=== PATIENT | female | born 1985 | race Caucasian/White ===

== ENCOUNTER 2021-10-24 14:58 | Emergency (ER) | payer OTHER ==
[~2021-10-24] VITALS: Ht 167.6 cm; Wt 69.9 kg
--- NOTE | 2021-10-24 15:17 | NUR ---
CAME IN AND STATED "WITHDRAWING FROM XANAX AND COCAINE" FEELING DIZZY AND NAUSEAOUS. TO ER BED 11, HOOKED TO MONITOR, CHANGED TO HOSP GOWN, WARM BLANKET PROVIDED, PATIENT AAO x 4. BREATHING EVEN AND UNLABORED. AWAITING MD ROOT
--- NOTE | 2021-10-24 15:38 | NUR ---
ASHLEY BELL AT BEDSIDE
--- NOTE | 2021-10-24 15:40 | NUR ---
URINE SAMPLE COLLECTED AND SENT TO LAB
[2021-10-24] MEDS ORDERED: ONDANSETRON HCL/PF 4 MG/2 ML VIAL ONE (15:59)
[2021-10-24] MEDS ORDERED: IV NS 0.9% 1,000 ML BAG IV ONE (16:00)
[2021-10-24] MEDS ORDERED: ONDANSETRON HCL/PF 4 MG/2 ML VIAL IVP ONE (16:00)
[2021-10-24] MEDS ORDERED: KETOROLAC TROMETHAMINE INJ 30 MG/ML VIAL IV ONE (16:00)
[2021-10-24] MEDS ORDERED: DIAZEPAM 5 MG TABLET PO ONE (16:00)
[2021-10-24] MEDS ORDERED: BACLOFEN (10 MG) 10 MG TABLET PO ONE (16:00)
--- NOTE | 2021-10-24 16:10 | NUR ---
COMMISSION ASSOCIATE AT BEDSIDE
[2021-10-24 16:15] LABS: BILIRUBIN,URINE MODERATE (NEGATIVE); COLOR,URINE YELLOW (YELLOW); LEUKOCYTE ESTERASE ,URINE NEGATIVE (NEGATIVE); NITRITE, URINE NEGATIVE (NEGATIVE); PH,URINE 6.5 (5.0-8.0); PROTEIN,URINE 100 mg/dl (NEGATIVE); UGLUCOSE NEGATIVE (NEGATIVE)
[2021-10-24 16:27] LABS: BASOPHILS % (AUTO) 0.6 % (0.0-2.0); EOSINOPHILS % (AUTO) 0.3 % (0.0-6.0); HEMATOCRIT 43 % (33-45); HEMOGLOBIN 14.3 g/dL (11.5-14.8); LYMPHOCYTES # (AUTO) 1.1 K/uL (0.8-4.8); LYMPHOCYTES % (AUTO) 23.9 % (20.0-44.0); MEAN CORPUSCULAR HGB CONC 33 g/dl (31.0-36.0); MEAN CORPUSCULAR VOLUME 92 fL (82-100); MONOCYTES # (AUTO) 0.2 K/uL (0.1-1.30); MONOCYTES % (AUTO) 5.3 % (2.0-12.0); NEUTROPHILS # (AUTO) 3.2 K/uL (1.8-8.9); NEUTROPHILS % (AUTO) 69.9 % (43.0-81.0); PLATELET COUNT (AUTO) 245 K/uL (150-450); RED BLOOD CELL COUNT(AUTO) 4.66 MIL/uL (4.0-5.2); WHITE BLOOD COUNT (AUTO) 4.5 K/uL (4.3-11.0)
[2021-10-24] MEDS ORDERED: KETOROLAC TROMETHAMINE 15 MG/ML VIAL ONE (16:27)
[2021-10-24] MEDS ORDERED: DIAZEPAM 5 MG TABLET ONE (16:27)
[2021-10-24] MEDS ORDERED: BACLOFEN (10 MG) 10 MG TABLET ONE (16:28)
[2021-10-24 16:43] LABS: BACTERIA,URINE 1+ /HPF (None Seen); RBC,URINE 51-80 /HPF (0-2); WBC,URINE 0-2 /HPF (0-3)
[2021-10-24 16:44] LABS: SQUAMOUS EPITHELIAL CELL,UR Few /HPF (None Seen)
[2021-10-24] MEDS ORDERED: Magnesium 1GM/D5W 100ML PREMIX 200 ML IV ONE (17:00)
[2021-10-24] MEDS ORDERED: Magnesium 1GM/D5W 100ML PREMIX 100 ML IV ONE ×2 (17:03→17:20)
[2021-10-24 17:35] LABS: BILIRUBIN,DIRECT 0.1 mg/dL (0.0-0.2); BILIRUBIN,TOTAL 0.6 mg/dL (0.2-1.0); TOTAL PROTEIN, SERUM 8.2 g/dL (6.4-8.2)
[2021-10-24] MEDS ORDERED: POTASSIUM CHLORIDE 20 MEQ TAB.PRT.SR PO ONE ×2 (18:48→19:00)
[2021-10-24] MEDS ORDERED: NAPR-1164 PO (18:59)
[2021-10-24] MEDS ORDERED: ONDA4TAB5 PO (18:59)
[2021-10-24] MEDS ORDERED: CHLO25CA22 PO (18:59)
[2021-10-24] MEDS ORDERED: CYCL5TAB PO (18:59)
--- NOTE | 2021-10-24 19:05 | NUR ---
REC'D REPORT FROM ZOEY LORENZO FOR NIKOS
--- NOTE | 2021-10-24 19:32 | NUR ---
ENDORSEMENT GIVEN TO LEE ANN GREER FOR NIKOS
--- NOTE | 2021-10-24 19:51 | NUR ---
Patient discharged to home in stable condition. Written and verbal after care instructions given. Patient verbalizes understanding of instruction. IV removed. Catheter intact and site benign. Pressure and 4x4 applied to site. No bleeding noted. Pt ambulatory with a steady gait
[2021-10-24 19:59] VITALS: BP 123/70
== END 2021-10-24 19:51 | disposition home or self-care (01) ==
LOC: ER 15:28
DX: F19.10 Other psychoactive substance abuse, uncomplicated (principal); F14.10 Cocaine abuse, uncomplicated; F13.10 Sedative, hypnotic or anxiolytic abuse, uncomplicated; R11.0 Nausea; R42 Dizziness and giddiness; F12.90 Cannabis use, unspecified, uncomplicated; M62.838 Other muscle spasm; E87.6 Hypokalemia; R07.89 Other chest pain; Z60.2 Problems related to living alone
CPT/HCPCS: 36415; 71045; 80048; 80076; 81001; 83690; 83735; 84484; 84703; 85025; 93005; 96361; 96365; 96375; 99285; J1885; J2405; J3475 ×2; J7030

== ENCOUNTER 2021-12-22 05:06 | Emergency (ER) | payer OTHER ==
[~2021-12-22] VITALS: Ht 167.6 cm; Wt 69.9 kg
[~2021-12-22 05:06] MED LIST: CHLO25CA22 PO; CYCL5TAB PO; NAPR-1164 PO; ONDA4TAB5 PO
--- NOTE | 2021-12-22 06:03 | NUR ---
BIBMOTHER C/O NEEDING A PSYCH AUSTYN PER MOTHER. PT STATES SHE IS SLEEP DEPRIVED, AND FEELING ANXIOUS, -SI/-HI. PT A/O X 4, RR EVEN AND UNLABORED NO SOB NOTED. PATIENT TAKEN TO ER BED 12.
--- NOTE | 2021-12-22 06:06 | NUR ---
URINE COLLECTED AND SENT TO LAB
--- NOTE | 2021-12-22 06:10 | NUR ---
LAB AT BEDSIDE FOR BLOOD DRAW
[2021-12-22 06:22] LABS: BILIRUBIN,URINE SMALL (NEGATIVE); COLOR,URINE ORANGE (YELLOW); LEUKOCYTE ESTERASE ,URINE NEGATIVE (NEGATIVE); NITRITE, URINE NEGATIVE (NEGATIVE); PH,URINE 5.5 (5.0-8.0); PROTEIN,URINE 30 mg/dl (NEGATIVE); UGLUCOSE NEGATIVE (NEGATIVE); UROBILINOGEN,URINE 0.2 EU/dL (0.2)
[2021-12-22 06:35] LABS: BASOPHILS % (AUTO) 0.5 % (0.0-2.0); EOSINOPHILS % (AUTO) 1.1 % (0.0-6.0); HEMATOCRIT 43 % (33-45); HEMOGLOBIN 14.7 g/dL (11.5-14.8); LYMPHOCYTES # (AUTO) 1.5 K/uL (0.8-4.8); LYMPHOCYTES % (AUTO) 18.2 % (20.0-44.0); MEAN CORPUSCULAR HGB CONC 34 g/dl (31.0-36.0); MEAN CORPUSCULAR VOLUME 92 fL (82-100); MONOCYTES # (AUTO) 0.6 K/uL (0.1-1.30); MONOCYTES % (AUTO) 7.9 % (2.0-12.0); NEUTROPHILS # (AUTO) 5.8 K/uL (1.8-8.9); NEUTROPHILS % (AUTO) 72.3 % (43.0-81.0); PLATELET COUNT (AUTO) 245 K/uL (150-450); RED BLOOD CELL COUNT(AUTO) 4.66 MIL/uL (4.0-5.2)
[2021-12-22 06:36] LABS: RBC,URINE 0-2 /HPF (0-2)
[2021-12-22 06:37] LABS: BACTERIA,URINE 2+ /HPF (None Seen); SQUAMOUS EPITHELIAL CELL,UR Many /HPF (None Seen)
[2021-12-22 06:48] LABS: CALCIUM, SERUM 9.3 mg/dL (8.5-10.1); CARBON DIOXIDE 26 mmol/L (21-32); CHLORIDE 102 mmol/L (98-107); CREATININE 0.9 mg/dL (0.6-1.3); GLUCOSE 122 mg/dL (74-106); POTASSIUM 3.4 mmol/L (3.5-5.1); SODIUM SERUM 139 mmol/L (136-145); UREA NITROGEN, BLOOD 10 mg/dL (7-18)
[2021-12-22 06:56] LABS: ALANINE AMINOTRANSFERASE 12 U/L (12-78); ALKALINE PHOSPHATASE 81 U/L (46-116); ASPARTATE AMINOTRANSFERASE 16 U/L (15-37); BILIRUBIN,DIRECT 0.2 mg/dL (0.0-0.2); BILIRUBIN,TOTAL 0.5 mg/dL (0.2-1.0)
[2021-12-22] MEDS ORDERED: OLANZAPINE 5 MG TABLET ONE (06:57)
[2021-12-22] MEDS ORDERED: OLANZAPINE 5 MG TABLET PO ONE (07:00)
[2021-12-22 07:01] LABS: ACETAMINOPHEN < 10 ug/ml (10-30)
[2021-12-22 07:02] LABS: ALCOHOL, BLOOD < 3 mg/dL (0-0)
[2021-12-22] MEDS ORDERED: PARO10TA86 PO (07:16)
[2021-12-22 07:20] VITALS: BP 130/77
--- NOTE | 2021-12-22 07:20 | NUR ---
Patient discharged to home in stable condition. Written and verbal after care instructions given. Patient verbalizes understanding of instruction.
== END 2021-12-22 07:21 | disposition home or self-care (01) ==
LOC: ER 05:12
DX: F14.10 Cocaine abuse, uncomplicated (principal); F32.A Depression, unspecified; F41.9 Anxiety disorder, unspecified; Z60.2 Problems related to living alone; Z79.899 Other long term (current) drug therapy
CPT/HCPCS: 36415; 80048-TC; 80076-TC; 81001; 85025-TC; 87086-TC; G0480

== ENCOUNTER 2023-06-06 17:40 | Emergency (ER) | payer MEDICAID, OTHER ==
[~2023-06-06] VITALS: Ht 167.6 cm; Wt 83.9 kg
[~2023-06-06 17:40] MED LIST changes: +PARO10TA86 PO
[2023-06-06 18:47] LABS: BASOPHILS % (AUTO) 0.4 % (0.0-2.0); EOSINOPHILS # (AUTO) 0.3 K/uL (0.0-0.7); EOSINOPHILS % (AUTO) 3.3 % (0.0-6.0); HEMATOCRIT 44 % (33-45); HEMOGLOBIN 14.4 g/dL (11.5-14.8); LYMPHOCYTES # (AUTO) 2.1 K/uL (0.8-4.8); LYMPHOCYTES % (AUTO) 24.3 % (20.0-44.0); MEAN CORPUSCULAR HEMOGLOBIN 30 PG (26.0-33.0); MEAN CORPUSCULAR HGB CONC 33 g/dl (31.0-36.0); MEAN CORPUSCULAR VOLUME 92 fL (82-100); MONOCYTES # (AUTO) 0.3 K/uL (0.1-1.30); MONOCYTES % (AUTO) 3.5 % (2.0-12.0); NEUTROPHILS % (AUTO) 68.5 % (43.0-81.0); PLATELET COUNT (AUTO) 229 K/uL (150-450); RED BLOOD CELL COUNT(AUTO) 4.75 MIL/uL (4.0-5.2); RED CELL DISTRIBUTION WIDTH 13.2 % (11.5-15.0); WHITE BLOOD COUNT (AUTO) 8.8 K/uL (4.3-11.0)
[2023-06-06] MEDS ORDERED: PRED50TA PO (19:27)
[2023-06-06 19:37] VITALS: BP 131/76; TEMP 98.6; O2SAT 100
[2023-06-06 19:45] LABS: PREGNANCY TEST URINE QUAL NEGATIVE (NEGATIVE)
[2023-06-06 19:52] LABS: ALBUMIN 3.6 g/dL (3.4-5.0); BILIRUBIN,DIRECT 0.1 mg/dL (0.0-0.2); BILIRUBIN,TOTAL 0.2 mg/dL (0.2-1.0); CALCIUM, SERUM 9.1 mg/dL (8.5-10.1); CREATININE 0.8 mg/dL (0.6-1.3); POTASSIUM 3.5 mmol/L (3.5-5.1); TOTAL PROTEIN, SERUM 7.5 g/dL (6.4-8.2)
[2023-06-06 20:08] LABS: APPEARANCE,URINE CLEAR (CLEAR); BILIRUBIN,URINE NEGATIVE (NEGATIVE); BLOOD, URINE TRACE-INTA Ery/uL (NEGATIVE); COLOR,URINE YELLOW (YELLOW); KETONES,URINE NEGATIVE (NEGATIVE); LEUKOCYTE ESTERASE ,URINE NEGATIVE (NEGATIVE); NITRITE, URINE NEGATIVE (NEGATIVE); PROTEIN,URINE NEGATIVE (NEGATIVE); UGLUCOSE NEGATIVE (NEGATIVE); UROBILINOGEN,URINE 0.2 EU/dL (0.2)
[2023-06-06 20:11] LABS: ADD URINE CULTURE NO; BACTERIA,URINE RARE /HPF (None Seen); WBC,URINE 0-2 /HPF (0-3)
== END 2023-06-06 19:37 | disposition home or self-care (01) ==
LOC: ER 17:40
DX: J32.8 Other chronic sinusitis (principal); B96.89 Other specified bacterial agents as the cause of diseases classified elsewhere; Z20.822 Contact with and (suspected) exposure to COVID-19; Z79.899 Other long term (current) drug therapy; Z60.2 Problems related to living alone
CPT/HCPCS: 99283; 87426; 87804 ×2; 85025; 80048; 83690; 80076; 84703; 81001; 36415; C9803

== ENCOUNTER 2024-08-17 19:57 | Emergency (ER) | payer MEDICAID, OTHER ==
[~2024-08-17] VITALS: Ht 167.6 cm; Wt 90.7 kg
[~2024-08-17 19:57] MED LIST changes: +PRED50TA PO
[2024-08-17 21:09] VITALS: BP 135/79; TEMP 98.5
[2024-08-17] MEDS ORDERED: METHOCARBAMOL (500MG) 500 MG TABLET ONE (21:44)
[2024-08-17] MEDS ORDERED: ACETAMINOPHEN ES 500 MG TABLET ONE (21:44)
[2024-08-17] MEDS ORDERED: KETOROLAC TROMETHAMINE INJ 30 MG/ML VIAL ONE (21:44)
[2024-08-17 21:48] LABS: PREGNANCY TEST URINE QUAL NEGATIVE (NEGATIVE)
[2024-08-17] MEDS: KETOROLAC TROMETHAMINE INJ 30 MG/ML VIAL IM ONE (21:48)
[2024-08-17] MEDS: ACETAMINOPHEN ES 500 MG TABLET PO ONE (21:48)
[2024-08-17] MEDS: METHOCARBAMOL (750MG) 750 MG TABLET PO SCH (21:48)
[2024-08-17 22:10] VITALS: O2SAT 97
== END 2024-08-17 22:10 | disposition home or self-care (01) ==
LOC: ER 20:05
DX: M25.562 Pain in left knee (principal); M25.561 Pain in right knee; M54.6 Pain in thoracic spine; F17.200 Nicotine dependence, unspecified, uncomplicated; F19.10 Other psychoactive substance abuse, uncomplicated; Z79.52 Long term (current) use of systemic steroids; Z79.899 Other long term (current) drug therapy; Z60.2 Problems related to living alone; V43.52XA Car driver injured in collision with other type car in traffic accident, initial encounter; Y93.89 Activity, other specified; Y92.488 Other paved roadways as the place of occurrence of the external cause; Y99.8 Other external cause status
CPT/HCPCS: 99284; 96372; 73564; 84703; J1885

== ENCOUNTER 2025-04-16 06:36 | Emergency (ER) | payer MEDICAID, OTHER ==
[~2025-04-16] VITALS: Ht 167.6 cm; Wt 86.2 kg
[2025-04-16 07:25] LABS: PLATELET COUNT (AUTO) 259 K/uL (150-450); RED BLOOD CELL COUNT(AUTO) 4.66 MIL/uL (4.0-5.2); RED CELL DISTRIBUTION WIDTH 13.2 % (11.5-15.0); WHITE BLOOD COUNT (AUTO) 11.4 K/uL (4.3-11.0)
[2025-04-16 07:33] LABS: CALCIUM, SERUM 9.1 mg/dL (8.5-10.1); CREATININE 0.9 mg/dL (0.6-1.3); SODIUM SERUM 137.0 mmol/L (136-145); UREA NITROGEN, BLOOD 10.0 mg/dL (7-18)
[2025-04-16 07:34] LABS: APPEARANCE,URINE SLIGHTLY CLOUDY (CLEAR); BLOOD, URINE 2+ Ery/uL (NEGATIVE); LEUKOCYTE ESTERASE ,URINE NEGATIVE (NEGATIVE); NITRITE, URINE NEGATIVE (NEGATIVE); UGLUCOSE NEGATIVE (NEGATIVE)
[2025-04-16 07:35] LABS: PREGNANCY TEST URINE QUAL NEGATIVE (NEGATIVE)
[2025-04-16 07:39] LABS: ASPARTATE AMINOTRANSFERASE 14.0 U/L (15-37); TOTAL PROTEIN, SERUM 8.2 g/dL (6.4-8.2)
[2025-04-16 07:40] LABS: ADD URINE CULTURE NO; SQUAMOUS EPITHELIAL CELL,UR 0-2 /HPF (None Seen)
[2025-04-16] MEDS ORDERED: IV NS 0.9% 250 ML IV ONE (07:47)
[2025-04-16] MEDS ORDERED: IOHEXOL-300 100 ML VIAL IV ONE (07:47)
[2025-04-16] MEDS ORDERED: MORPHINE SULFATE INJ 4 MG/ML DISP.SYRIN ONE (07:59)
[2025-04-16] MEDS ORDERED: ONDANSETRON HCL/PF 4 MG/2 ML VIAL ONE (07:59)
[2025-04-16] MEDS: ONDANSETRON HCL/PF 4 MG/2 ML VIAL IVP ONE (08:27)
[2025-04-16] MEDS: MORPHINE SULFATE INJ 2 MG/ML DISP.SYRIN IV ONE (08:28)
[2025-04-16] MEDS ORDERED: DICY10CA37 PO (10:12)
[2025-04-16] MEDS ORDERED: ONDA4TAB11 PO (10:12)
[2025-04-16] MEDS ORDERED: NAPR-1009 PO (10:12)
[2025-04-16 11:29] VITALS: BP 121/88; TEMP 97.7; O2SAT 96
== END 2025-04-16 11:32 | disposition home or self-care (01) ==
LOC: ER 06:47
DX: N83.202 Unspecified ovarian cyst, left side (principal); Z79.52 Long term (current) use of systemic steroids; Z79.899 Other long term (current) drug therapy
CPT/HCPCS: 99285; 74177; 96374; 96375; 85025; 80048; 83690; 80076; 84703; 81001; 36415; J2270; J2405; J7050; Q9967